=== PATIENT | female | born 1990 | race African-American/Black ===

== ENCOUNTER 2017-10-14 12:15 | Emergency (ER) | payer OTHER ==
[~2017-10-14] VITALS: Ht 154.9 cm; Wt 61.2 kg
[~2017-10-14 12:15] MED LIST: DOXYCYCLINE 10100 M1 PO; NOHOMEMEDICATIONS; ULTRAM 50MG TAB50 MG PO; ZOFRAN ODT4 MG PO
[2017-10-14 13:16] LABS: HEMATOCRIT 35.5 % (37.0-47.0); HEMOGLOBIN 12.2 gm/dL (12.0-15.0); MCH 31.4 pg (26.0-34.0); MCHC 34.3 g/dL (28.0-37.0); MCV 91.5 fL (80.0-100.0); RBC 3.89 mil/uL (4.20-5.00); RDW 14.1 % (10.5-14.5)
[2017-10-14 13:28] LABS: CALCIUM 9.2 mg/dL (8.5-10.1); CREATININE 0.6 mg/dL (0.6-1.0); POTASSIUM 3.6 mmol/L (3.5-5.1)
[2017-10-14 14:30] LABS: URINE BILIRUBIN NEGATIVE (Negative); URINE BLOOD NEGATIVE (Negative); URINE CLARITY CLEAR; URINE COLOR YELLOW; URINE GLUCOSE-RANDOM* NEGATIVE (Negative); URINE KETONES 1+ (Negative); URINE LEUKOCYTES-REFLEX NEGATIVE (Negative); URINE NITRITE-REFLEX NEGATIVE (Negative); URINE PROTEIN (DIPSTICK) NEGATIVE (Negative); URINE SPECIFIC GRAVITY 1.025 (1.005-1.035); URINE UROBILINOGEN 0.2 E.U./dl (0.2-1.0)
[2017-10-14 14:47] VITALS: BP 125/56
[2017-10-15 13:10] LABS: NEISSERIA GONORRHEA-PCR Negative (Negative)
== END 2017-10-14 14:48 | disposition home or self-care (01) ==
LOC: ER 12:15
PROVIDERS: Emergency Medicine
DX: O20.0 Threatened abortion (principal); O26.892 Other specified pregnancy related conditions, second trimester; Z3A.15 15 weeks gestation of pregnancy; R10.2 Pelvic and perineal pain